=== PATIENT | female | born 1985 | race American Indian/Alaskan Native ===

== ENCOUNTER 2018-03-31 11:17 | Outpatient (CLI) | payer BC ==
--- NOTE | 2018-03-31 14:33 | Ultrasound Report ---
ULTRASOUND PELVIC COMPLETE ULTRASOUND TRANSVAGINAL HISTORY: Pelvic pain. COMPARISON: No recent comparison. TECHNIQUE: Transabdominal and transvaginal ultrasound with color doppler interrogation. FINDINGS: Uterus: Anteverted. The uterus is mildly enlarged measuring 11 x 5 x 6 cm. A small submucosal fibroid is identified in the anterior wall measuring 1 cm. Normal cervix. Endometrium: 8 mm. No focal abnormality. Right ovary: 4.2 x 2.4 x 2.6 cm. Left ovary: 2.3 x 1.9 x 3.2 cm. No pelvic fluid or mass is identified. Normal color doppler interrogation. IMPRESSION: Small uterine fibroid as described, otherwise, unremarkable exam.
== END 2018-03-31 11:18 | disposition home or self-care (01) ==
LOC: US 11:17
PROVIDERS: ATTEND Obstetrics & Gynecology
DX: D25.0 Submucous leiomyoma of uterus (principal); N85.4 Malposition of uterus
CPT/HCPCS: 76830; 76856